=== PATIENT | female | born 1965 | race Caucasian/White ===

== ENCOUNTER → 2022-03-14 | Outpatient (CLI) | payer MEDICARE, OTHER ==
--- NOTE | 2022-03-14 16:55 | MR ---
EXAMINATION TYPE: MR brain wo con DATE OF EXAM: 03/14/2022 COMPARISON: None HISTORY: optic neuritis CONTRAST: Performed utilizing 0 mL intravenous Gadavist gadolinium contrast. TECHNIQUE: Multiplanar, multiecho imaging on a 3.0 Skylar magnet is performed through the brain. Stud y is performed within 24 hours of arrival to the hospital. The craniovertebral junction is normal. The pituitary is normal. Diffusion-weighted imaging is performed. No abnormal hyperintensity is present to suggest an acute i ntracranial infarct or acute ischemic change. Couple of punctate hyperintensities are within the subcortical white matter of the left frontal lobe. This is not out of portion to the patient's age. Finding is nonspecific but could be related to migr lucia headaches, microvascular ischemic change. Multiple sclerosis, vasculitis, Lyme disease would be within the differential. Ventricles and sulci are appropriate for the patient age. The globes appear symmetrical. Extraocular muscles are unremarkable. Intraconal and extraconal fat ap pear normal. No suspicious acute changes of the optic nerves are evident. Optic chiasm appears normal . IMPRESSIONS: 1. No suspicious acute changes. Couple of nonspecific subcortical white matter changes may be within the left frontal lobe.
== END | disposition home or self-care (01) ==
LOC: RADMRIMAIN 12:35
PROVIDERS: ATTEND Physician Assistant
DX: G31.9 Degenerative disease of nervous system, unspecified (principal)
CPT/HCPCS: 70551

== ENCOUNTER → 2024-08-21 | Outpatient (CLI) | payer MEDICARE, OTHER ==
[2024-08-26 04:21] LABS: Cotinine <2.0 ng/mL (<2.0); Nicotine <2.0 ng/mL (<2.0)
== END | disposition home or self-care (01) ==
LOC: LABWHC1 10:48
PROVIDERS: ATTEND Orthopaedic Surgery Orthopaedic Surgery of the Spine
DX: Z01.812 Encounter for preprocedural laboratory examination (principal)
CPT/HCPCS: 36415; G0480; 80323

== ENCOUNTER → 2024-08-27 | Outpatient (CLI) | payer MEDICARE, OTHER ==
[2024-08-27 12:26] LABS: Partial Thromboplastin Time 20.3 sec (22.0-30.0)
[2024-08-27 12:52] LABS: African American GFR (CKD) >90 (>60 ml/min/1.73 sqM); Anion Gap 7 mmol/L; Blood Urea Nitrogen 20 mg/dL (7-17); Calcium 9.9 mg/dL (8.4-10.2); Carbon Dioxide 26 mmol/L (22-30); Chloride 101 mmol/L (98-107); Glucose 165 mg/dL (74-99); Non-African American GFR(CKD) 87 (>60 ml/min/1.73 sqM); Potassium 4.4 mmol/L (3.5-5.1); Sodium 134 mmol/L (137-145)
[2024-08-27 14:08] LABS: Appearance,Urine Cloudy (Clear); Bilirubin,Urine Negative (Negative); Blood,Urine Negative (Negative); Color,Urine Yellow; Glucose,Urine (UA) Negative (Negative); Ketones,Urine Negative (Negative); Leukocyte Esterase,Urine Negative (Negative); Mucus,Urine Few /hpf; Nitrite,Urine Negative (Negative); PH, Urine 5.5 (5.0-8.0); Protein,Urine Trace (Negative); RBC,Urine 2 /hpf (0-5); Specific Gravity,Urine 1.034 (1.001-1.035); Squamous Epithelial Cell,Urine 5 /hpf (0-4); WBC,Urine 2 /hpf (0-5)
[2024-08-27 14:55] LABS: HCT 39.8 % (37.2-46.3); HGB 12.5 g/dL (12.0-15.0); MCH 36.4 pg (27.0-32.0); MCHC 31.4 g/dL (32.0-37.0); Mean Platelet Volume 9.7 FL (9.5-12.2); NRBC Per 100 WBC 0.03 X 10*3/uL (0.00-0.01); Platelet Count 536 X 10*3/uL (140-440); RBC 3.43 X 10*6/uL (4.10-5.20); WBC 15.97 X 10*3/uL (4.50-10.00)
[2024-08-27 15:52] LABS: Basophils # (A) 0.08 X 10*3/uL (0.00-0.10); Basophils % (A) 0.5 %; Eosinophils # (A) 0.02 X 10*3/uL (0.04-0.35); Eosinophils % (A) 0.1 %; Lymphocytes # (A) 1.05 X 10*3/uL (0.90-5.00); Lymphocytes % (A) 6.6 %; Macrocytosis (M) 2+ (None Seen); Monocytes # (A) 0.85 X 10*3/uL (0.20-1.00); Monocytes % (A) 5.3 %; Neutrophils # (A) 13.54 X 10*3/uL (1.80-7.70); Neutrophils % (A) 84.8 %
== END | disposition home or self-care (01) ==
LOC: LABPAT 11:23
PROVIDERS: ATTEND Orthopaedic Surgery Orthopaedic Surgery of the Spine
DX: Z01.818 Encounter for other preprocedural examination (principal); M47.817 Spondylosis without myelopathy or radiculopathy, lumbosacral region; M48.07 Spinal stenosis, lumbosacral region; Z22.322 Carrier or suspected carrier of Methicillin resistant Staphylococcus aureus
CPT/HCPCS: 80048; 81001; 85025; 85610; 85730; 86850; 86900; 86901; 87070; 93005

== ENCOUNTER 2024-09-16 06:01 | Inpatient (IN) | payer MEDICARE, OTHER ==
[2024-09-11 12:11] VITALS: BMI 32.9
[~2024-09-16 06:01] MED LIST: ceFAZolin 1,000 MG in SODIUM CHLORIDE 0.9% IRRIGATIO 1,000 ML IRRIGATION PRN
[2024-09-16] MEDS ORDERED: MIDAZOLAM 2 MG/2 ML VIAL IV PRN (07:00)
[2024-09-16 07:02] LABS: Glucose,Whole Blood 126 mg/dL (70-110)
[2024-09-16] MEDS: ONDANSETRON 4 MG/2 ML VIAL IVP ONE (07:13)
[2024-09-16] MEDS: SCOPOLAMINE 1 MG/72 HR PATCH TRANSDERM ONE (07:14)
[2024-09-16] MEDS: LACTATED RINGERS 1,000 ML IV SCH (07:14)
[2024-09-16 07:16] LABS: Hypochromasia Slight
[2024-09-16] MEDS: HYDROCORTISONE SUCCINATE 100 MG/2 ML VIAL IV STA (07:20)
[2024-09-16] MEDS: IV FLUID CONTINUATION 1,000 ML IV ONE (07:21)
[2024-09-16 07:22] LABS: HCT 37.7 % (34.0-46.0); HGB 11.9 gm/dL (11.4-16.0); MCH 35.5 pg (25.0-35.0); MCHC 31.5 g/dL (31.0-37.0); MCV 112.8 fL (80.0-100.0); Macrocytosis Marked; Mean Platelet Volume 7.6; Platelet Count 395 k/uL (150-450); RBC 3.34 m/uL (3.80-5.40); RDW 15.5 % (11.5-15.5); WBC 14.4 k/uL (3.8-10.6)
[2024-09-16] MEDS ORDERED: SUCCINYLCHOLINE CHLORIDE 200 MG/10 ML VIAL IV ONE (07:25)
[2024-09-16] MEDS ORDERED: fentaNYL (PF) 50 MCG/ML 2 ML AMP ONE (07:25)
[2024-09-16] MEDS ORDERED: PROPOFOL 10 MG/ML 20 ML VIAL IV ONE (07:25)
[2024-09-16] MEDS ORDERED: KETAMINE HCL IN 0.9 % NACL 50 MG/5 ML SYRINGE ONE (07:25)
[2024-09-16] MEDS ORDERED: LIDOCAINE 1% INJ 10MG/ML (20 ML MDV) ONE (07:25)
[2024-09-16] MEDS ORDERED: ROCURONIUM 10 MG/ML (5 ML VIAL) IV ONE (07:25)
[2024-09-16] MEDS ORDERED: MIDAZOLAM 2 MG/2 ML VIAL ONE (07:25)
[2024-09-16] MEDS ORDERED: ACETAMINOPHEN IV (For NPO) 1,000 MG/100 ML VIAL ONE (07:25)
[2024-09-16] MEDS ORDERED: GLYCOPYRROLATE 0.2 MG/ML 2 ML VIAL ONE (07:25)
[2024-09-16] MEDS ORDERED: NEOSTIGMINE 1 MG/ML 10 ML VIAL ONE (07:25)
[2024-09-16] MEDS: THROMBIN (BOVINE) 5,000 UNIT VIAL TOPICAL ONE (07:30)
[2024-09-16] MEDS: LIDOCAINE 1%-EPI 1:100,000 20 ML VIAL SQ ONE (08:05)
[2024-09-16] MEDS: ceFAZolin 1,000 MG in SODIUM CHLORIDE 0.9% IRRIGATIO 1,000 ML IRRIGATION PRN (08:30)
[2024-09-16] MEDS ORDERED: ONDANSETRON 4 MG/2 ML VIAL IVP PRN (10:44)
[2024-09-16] MEDS ORDERED: BENZOCAINE/MENTHOL LOZENG 1 EACH LOZENGE MUCOUS MEM PRN (10:44)
[2024-09-16] MEDS ORDERED: MAGNESIUM HYDROXIDE 2,400 MG/30 ML CUP PO PRN (10:44)
[2024-09-16] MEDS ORDERED: HYDROcodone/APAP 10-325MG 1 EACH TAB PO PRN (10:46)
[2024-09-16] MEDS ORDERED: CYCLOBENZAPRINE 5 MG TAB PO PRN (10:46)
--- NOTE | 2024-09-16 10:58 | FL ---
EXAMINATION TYPE: FL guidance operating room, XR lumbar spine 2 or 3V DATE OF EXAM: 09/16/2024 10:36 AM COMPARISON: Pre Operative Images if available both CT/MRI or plain film CLINICAL INDICATION: Female, 58 years old with history of L5-S1 Fusion; TECHNIQUE: FL guidance operating room, XR lumbar spine 2 or 3V, multiple fluoroscopic images provided for procedure. DAP: 17.526 mGym2 Gycm2 uGym2 cGycm2 or equivalent. FINDINGS: Fluoroscopic images during internal fixation/arthroplasty demonstrate hardware in appropriate positio n. Hardware appears intact. No immediate complication identified. IMPRESSION: 1. No evidence for intraoperative complication. 2. Please see the operative/procedural note for further details. [facility], , 09/16/2024 10:56 AM
--- NOTE | 2024-09-16 11:06 | P.OP ---
Date of Procedure: 09/16/24 Preoperative Diagnosis: Dynamic spondylolisthesis L5-S1, spinal stenosis L5-S1, low back pain, lower extremity radiculopathy Postoperative Diagnosis: Dynamic spondylolisthesis L5-S1, spinal stenosis L5-S1, low back pain, lower extremity radiculopathy Procedure(s) Performed: Minimally invasive decompression and fusion L5-S1, placement of interbody autogenous bone graft within the cage at L5-S1 for transforaminal interbody fusion and 360 degree fusion at L5-S1, wide decompression laminectomy L5-S1, discectomy for decompression L5-S1, use of intraoperative C-arm guidance x 2 for placement of hardware and fixation, harvesting of bone marrow aspirate from L5 pedicle on the right for use to supplement bone graft, harvesting local antis bone graft, Anesthesia: GETA Pathology: none sent Condition: stable Disposition: PACU Description of Procedure: DESCRIPTION OF PROCEDURE(S): BRIEF OPERATIVE NOTE Preoperative Diagnosis: Dynamic spondylolisthesis L5-S1, spinal stenosis L5-S1, herniated nucleus pulposus with extruded fragment L5-S1, lower extremity radiculopathy, lower extremity weakness, neurogenic claudication, low back pain, degenerative disc disease Postoperative Diagnosis: Same Procedure: Laminectomy and decompression L5-S1 Biplanar fluoroscopy navigation aided Minimally invasive Posterior lateral decompression and facet fusion L5-S1 Minimally invasive Transforaminal lumbar interbody fusion for a 360 fusion L5-S1 Discectomy for decompression L5-S1 Placement of interbody graft L5-S1 Use of fluoroscopy navigation for fusion Local autogenous bone grafting Aspiration of bone marrow from the vertebral body pedicle L5 on the right Use of bone graft extenders Surgeon: Dr. Mcguire Hand Shaper: Dante MOSS who is present throughout the entire the case persistence during positioning, dissection, exposure, visualization, and all crucial elements of the case as well as closure. Anesthesia: General anesthesia per Estimated blood loss: Approximately 200 mL Complications: None apparent Components implanted: K2M minimally invasive [place] pedicle screw system withscrews measuring 6.5 mm in diameter to rods one 9 mm Smyer interbody cage with 10 mL of osteo amp bio4 bone graft substitute and 30 mL of the BX bone fibers to supplement the local autogenous bone graft and bone marrow aspirate Disposition: To recovery room in good stable condition. OPERATIVE INDICATIONS The patient has had severe issues at their lower extremity in her lower back over the past several months with significant worsening. Over the past few months the patient had pain at their back and their lower extremities. The patient is having severe radicular symptoms at their right lower extremity with weakness. The patient is having significant pain in their back. They are unable to obtain any comfort. We did aggressive conservative treatment with medications therapy and interventional pain management however thery were not having any relief. The patient also showed evidence of a dynamic grade 2 listhesis with some dynamic instability at L5-S1. He had a large disc nation at the far lateral space at L5-S1 on the right which correlated well with her low back and lower extremity symptoms. The patient has been through conservative treatment. We discussed various treatment options including surgery, and the patient wishes to proceed with surgery We discussed the risk, patient's alternatives and benefits of surgery including but not limited to, risk of bleeding risk of infection, risk of need for further surgery, risk of decreased, loss of motion, muscle function, malunion nonunion, hardware failure, nerve damage, paralysis, heart attack, blindness and . They understood issues with the current pandemic and the possibility of exposure. OPERATIVE SUMMARY After discussing all the risks, patient alternatives and benefits at length, the patient elected to proceed with surgical intervention, signed informed consent, and presented for their procedure. The patient was seen and examined in the preoperative holding area and the surgical site was marked. The patient was given antibiotics and brought to the operating room. The patient was sedated and intubated by anesthesia in standard fashion. The patient was positioned on to the operating room table in a prone position on the appropriate frame which was well-padded and well molded. We were careful to pad any bony prominences and pressure points. We were careful to maintain the patient's cervical spine and good neutral alignment and position throughout. The patient was prepped and draped in a normal standard fashion. An appropriate timeout and keystone protocol performed. We were able to proceed with the surgery. The local wound area was infiltrated with local anesthetic. Over the right iliac crest I was able to make small stab incisions and establish a guidepin screw fixation to the iliac crest 2. I was able place the computer referencing device over the guidepins to establish an appropriate reference point for the Ziem CT navigation, however there is some malfunction with the same navigation and we opted to use biplanar fluoroscopy for guidance and navigation throughout the case appropriately. I was able utilize C-arm guidance and a biplanar manner to establish appropriate position over the pedicles bilaterally at the appropriate levels at L5-S1. With the appropriate levels confirmed was able to make small incisions over the appropriate pedicle sites bilaterally. Utilizing the biplanar fluoroscopy I was able to establish bony landmarks at the right iliac crest for a bony reference point for the navigation device. I was able to establish a Jamshidi needle over the lateral aspect of the pedicle and advanced the trocar into the pedicle being careful not to breech superiorly inferiorly medially or laterally using computer navigation device. Position was confirmed regularly with AP and lateral images on C-arm and with the computer navigation device at the appropriate levels bilaterally. I was able to establish the trocar into the pedicle appropriately into the posterior aspect of the vertebral body bilaterally at the appropriate levels at L5-S1 bilaterally. This was done at each of the pedicle positions and each of the vertebrae. At the superior vertebrae of L5 on the right I was able to take approximately 15 mL of bone aspiration for use later in the case to supplement the allograft and autograft bone. I was able place the guidewire into the trocar and into the vertebral body appropriately under C-arm guidance. Dissection was taken down over the wire to the appropriate starting position for the screw placed. The appropriate length screw was chosen, threaded over the guidewire and screwed appropriately into the pedicle and vertebral body under C- arm guidance in excellent alignment and position with good bony purchase. This is done at each of the screw sites at the appropriate levels.. With the screws intact I extended the incision to connect the screw hole sites on the most symptomatic side on the right. I dissected down to establish access over the pars and lamina to the base of the spinous process. I was able to expose the facet joint. The capsule the facet was taken down and showed some facet arthrosis at the joint. I was able to use a combination of curettes and Kerrison rongeurs and a high-speed drill to take down the facet joint and do a facetectomy. I was able get excellent foraminal decompression and central decompression with undermining across midline to perform a laminectomy centrally and contralaterally. As able get good central decompression. The ligamentum flavum was taken down to further decompress centrally and at bilateral neural foramen. I was able to expose the disc space and visualize the traversing nerve root. Note was made of some large disc herniation at the far lateral space at L5-S1 on the right and disc herniation that was abutting the traversing nerve root at the level causing further compression of the nerve root. I was able to establish a annulotomy at the appropriate level protecting soft tissue and neural structures. Note was made of some disc desiccation at the disc. I performed a complete discectomy with accommodation of curettes and rasps and scrapers. I was able get good endplate preparation at the disc space. I sized for the appropriate size interbody spacer protecting the soft tissue and neural structures. The wound was copiously irrigated and suctioned dry. There is no evidence of any dural tear or leak. I was able to pack the disc space with local autogenous bone graft as well as a small amount of bone graft which was also placed into the interbody cage itself. Protecting the soft tissue structures and neural structures I was able place the interbody cage in good alignment and good position with good fit and fill at the interbody space. Position was confirmed with C-arm guidance. Good hemostasis maintained. There is no evidence of any dural tear or leak. The wound was irrigated and suctioned dry. With the hardware intact, intraoperative C-arm imaging was again taken which showed good alignment and position of the hardware at the appropriate levels. We were then able to measure, contour and place the rods and appropriate hardware bilaterally. I was able to place capcrews, tighten them down, and torque them with the torque screwdriver appropriately. With this intact I was able to place the local autogenous bone graft with additional bone graft enhancer as necessary into the posterior lateral gutters over the decorticated transverse processes and facet joints on the contralateral side. The remainder of the bone graft was placed over the facet joint on the contralateral side after taking down the facet joint capsule. With the bone graft intact, a stable construct, and good decompression at the appropriate levels at L5-S1, we were able to proceed with closure. Good hemostasis was maintained. There is no evidence of dural tear or leak. The fascia was closed for a watertight closure. he subcuticular tissue was closed with absorbable suture. The wound was cleaned and dried and dressed with the appropriate dressing. The drapes were broken down. The patient was gently rolled back onto their hospital bed being careful to maintain their cervical spine and good neutral alignment and position. They were woken up by anesthesia, extubated, and brought to the recovery room in good stable condition. The patient will be admitted to the hospital for appropriate postoperative care, medical management and monitoring. We will continue to follow them closely about the postoperative course.
[2024-09-16] MEDS: HYDROmorphone 0.5 MG/0.5 ML SYRINGE IVP PRN (11:16)
[2024-09-16] MEDS: DEXAMETHASONE SOD PHOSPHATE 4 MG/ML 1 ML VIAL IV ONE (12:27)
[2024-09-16] MEDS: SODIUM CHLORIDE 0.9% 1,000 ML IV SCH (13:10)
[2024-09-16] MEDS: HYDROmorphone 1 MG/ML 1 ML SYRINGE IVP PRN (13:17)
[2024-09-16] MEDS: GABAPENTIN 400 MG CAP PO SCH (16:37)
[2024-09-16] MEDS: CYCLOBENZAPRINE 10 MG TAB PO PRN (16:43)
[2024-09-16] MEDS: SPIRONOLACTONE 25 MG TAB PO SCH (19:52)
[2024-09-16] MEDS: HYDROcodone/APAP 10-325MG 1 EACH TAB PO PRN (19:53)
[2024-09-16] MEDS: MIDODRINE 5 MG TAB PO SCH (19:53)
[2024-09-16] MEDS: METOPROLOL SUCCINATE (ER) 25 MG TAB.ER.24H PO SCH (19:54)
[2024-09-16] MEDS ORDERED: IPRATROPIUM-ALBUTEROL 3 ML NEB INHALATION PRN (22:33)
--- NOTE | 2024-09-16 22:34 | P.CONS ---
History of Present Illness - Reason for Consult Consult date: 09/16/24 Medical management Requesting physician: Kameron Mcguire - Chief Complaint Lumbar surgery - History of Present Illness Very pleasant 58-year-old patient follows Dr. Blu Yeboah. Chronic medical conditions include atrial fibrillation, COPD, GERD, rheumatoid arthritis, obstructive sleep apnea does not use a CPAP machine, hypothyroid, varicose veins, diverticulosis. Patient has lower back pain for good 10 months. Progressively getting worse. Had sciatica symptoms pain going down the right leg. Finding it difficult to walk. Patient today is undergone surgical intervention in the lower lumbar spine. Postprocedure some local pain present. No nausea vomiting. Review of systems: GEN.: None EYES: None HEENT: None NECK: None RESPIRATORY: None CARDIOVASCULAR: None GASTROINTESTINAL: None GENITOURINARY: None MUSCULOSKELETAL: As above LYMPHATICS: None HEMATOLOGICAL: None PSYCHIATRY: None NEUROLOGICAL: [Was having trouble walking prior to surgery Social history: Patient smoke about 50 years stopped smoking about a month ago. Lives with her [facility]. Denies alcohol Physical examination: VITAL SIGNS: 98.7, 101, 16, 111 x 72, 93% room air GENERAL: BMI 33.4, reclining bed awake not in distress. EYES: Pupils equal. Conjunctiva karyn l. HEENT: External appearance of nose and ears normal, oral cavity grossly normal. NECK: JVD not raised; masses not palpable. HEART: First and second heart sounds are normal; no edema. LUNGS: Respiratory rate normal; diminished breath sounds. ABDOMEN: Soft, nontender, liver spleen not palpable, no masses palpable. PSYCH: Alert and oriented x3; mood and affect karyn l. MUSCULOSKELETAL:No Clubbing/cyanosis;muscles-grossly intact. Dressing over operative site NEUROLOGICAL: Cranial nerves grossly intact; no facial asymmetry, power and sensation grossly intact. LYMPHATICS: No lymph nodes palpable in the axilla and neck INVESTIGATIONS, reviewed in the clinical context: September 16, 2024: White count 14.4 hemoglobin 11.9 platelets 395 August 27, 2024: White count 15.9 hemoglobin 12.5 sodium 134 potassium 4.4 creatinine 0.75 Assessment plan: -Dynamic spondylolisthesis L5-S1, spinal stenosis L5-S1, low back pain, lower extremity radiculopathy Laminectomy, decompression discectomy interbody graft etc. by Dr. Mcguire on September 16, 2024 Follow postop orders per Dr. Mcguire -Chronic urinary stress incontinence Myrbetriq -Hypothyroid Synthroid 75 mcg a day -Muscle spasms Flexeril -COPD in a prior smoker Bronchodilators as needed -Obesity BMI 33.4 Weight loss measures -Chronic rheumatoid arthritis -Obstructive sleep apnea, patient does not use her CPAP -Chronic diverticulosis with prior bowel resection. Stable -GERD PPI -Full code Patient getting IV cefazolin for antibiotic prophylaxis Home medications be resumed. Care was discussed with the patient. Thank you Dr. Mcguire Past Medical History Past Medical History: Atrial Fibrillation, COPD, GERD/Reflux, Rheumatoid Arthritis (RA), Sleep Apnea/CPAP/BIPAP, Thyroid Disorder Additional Past Medical History / Comment(s): sores radha arms,"takes cardiac meds due to when standing up would feel dizzy and fall",chronic back pain,varicose veins, has O2 at home but does not use,does not use cpap,herpes,daily steroid,diverticulosis/diverticulitis History of Any Multi-Drug Resistant Organisms: None Reported Past Surgical History: Bowel Resection, Cardiac Ablation, Section, Orthopedic Surgery Additional Past Surgical History / Comment(s): radha carpal tunnel, bowel resection due to diverticulitis, COLONOSCOPY Past Anesthesia/Blood Transfusion Reactions: No Reported Reaction Additional Past Anesthesia/Blood Transfusion Reaction / Comm: no hx blood transfusion Past Psychological History: No Psychological Hx Reported Smoking Status: Former smoker Past Alcohol Use History: None Reported Additional Past Alcohol Use History / Comment(s): quit smoking 07-31-24, smokes approx 50 yrs-on and off Past Drug Use History: None Reported - Past Family History Mother Family Medical History: No Reported History Medications and Allergies Home Medications Medication Instructions Recorded Confirmed Type Apixaban [Eliquis] 5 mg PO BID 08/28/24 09/16/24 History Atorvastatin Calcium [Lipitor] 40 mg PO DAILY 08/28/24 09/11/24 History Cholecalciferol (Vitamin D3) 125 mcg PO DAILY 08/28/24 09/11/24 History [Vitamin D3 (125 MCG = 5,000 IU)] Cyclobenzaprine HCl 5 mg PO TID PRN 08/28/24 09/11/24 History Fludrocortisone Acetate 0.2 mg PO QAM 08/28/24 09/11/24 History Gabapentin 800 mg PO TID 08/28/24 09/11/24 History HYDROcodone/APAP 10-325MG [[place] 1 tab PO BID PRN 08/28/24 09/11/24 History 10-325] Leflunomide [Arava] 20 mg PO DAILY 08/28/24 09/11/24 History Levothyroxine Sodium [Synthroid] 75 mcg PO QAM 08/28/24 09/11/24 History Metoprolol Succinate (ER) [Toprol 25 mg PO BID 08/28/24 09/16/24 History Xl] Midodrine HCl [ProAmantine] 2.5 mg PO BID 08/28/24 09/11/24 History Mirabegron [Myrbetriq] 50 mg PO DAILY 08/28/24 09/11/24 History Omeprazole 20 mg PO QAM 08/28/24 09/11/24 History Spironolactone [Aldactone] 50 mg PO BID 08/28/24 09/11/24 History Upadacitinib [Rinvoq] 15 mg PO DAILY 08/28/24 09/11/24 History valACYclovir HCL [Valtrex] 500 mg PO DAILY 08/28/24 09/11/24 History Allergies Allergy/AdvReac Type Severity Reaction Status Date / Time No Known Allergies Allergy Verified 09/16/24 06:36 Physical Exam Vitals: Vital Signs Temp Pulse Resp BP Pulse Ox 09/16/24 19:30 98.7 F 111 H 16 117/72 93 L 09/16/24 14:40 102 H 116/70 92 L 09/16/24 14:25 105 H 114/73 93 L 09/16/24 14:10 111 H 109/74 94 L 09/16/24 13:55 108 H 122/72 93 L 09/16/24 13:25 131 H 134/87 93 L 09/16/24 13:09 104 H 150/88 91 L 09/16/24 12:55 93 144/92 94 L 09/16/24 12:40 111 H 145/86 93 L 09/16/24 12:15 89 16 140/78 95 09/16/24 12:00 87 16 137/62 95 09/16/24 11:38 92 16 151/81 95 09/16/24 11:23 106 H 16 162/89 92 L 09/16/24 11:08 87 16 168/86 97 09/16/24 10:53 96.8 F L 108 H 16 177/89 98 09/16/24 06:43 963.8 F H 119 H 16 143/90 95 Intake and Output 09/16/24 09/16/24 09/16/24 06:59 14:59 22:59 Intake Total 851 Output Total 450 200 Balance 401 -200 Intake: IV 851 Output: Urine 250 200 Estimated Blood Loss 200 Other: # Voids 1 Weight 85.6 kg 85.6 kg Results CBC & Chem 7: 09/16/24 07:05 Labs: Abnormal Lab Results - Last 24 Hours (Table) 09/16/24 09/16/24 Range/Units 07:01 07:05 WBC 14.4 H (3.8-10.6) k/uL RBC 3.34 L (3.80-5.40) m/uL MCV 112.8 H (80.0-100.0) fL MCH 35.5 H (25.0-35.0) pg Macrocytosis Marked A POC Glucose (mg/dL) 126 H (70-110) mg/dL
[2024-09-17 05:43] LABS: ALT 21 U/L (4-34); AST 38 U/L (14-36); African American GFR (CKD) 74 (>60 ml/min/1.73 sqM); Albumin/Globulin Ratio 1.3; Alkaline Phosphatase 114 U/L (38-126); Anion Gap 10 mmol/L; Blood Urea Nitrogen 16 mg/dL (7-17); Calcium 8.6 mg/dL (8.4-10.2); Carbon Dioxide 19 mmol/L (22-30); Chloride 101 mmol/L (98-107); Globulin 2.4 g/dL; Glucose 90 mg/dL (74-99); Non-African American GFR(CKD) 64 (>60 ml/min/1.73 sqM); Sodium 130 mmol/L (137-145); Total Bilirubin 0.4 mg/dL (0.2-1.3); Total Protein 5.4 g/dL (6.3-8.2)
[2024-09-17] MEDS: LEVOTHYROXINE 75 MCG TAB PO SCH (07:01)
[2024-09-17] MEDS: PANTOPRAZOLE 40 MG TABLET PO SCH (07:01)
[2024-09-17] MEDS: NON FORMULARY DRUG (Mirabegron [Myrbetriq] 50 MG Tab.Er.24h) PO SCH (08:25)
[2024-09-17] MEDS: NON FORMULARY DRUG (Upadacitinib [Rinvoq] 15 MG Tab.Er.24h) PO SCH (08:25)
[2024-09-17] MEDS: valACYclovir HCL 500 MG TAB PO SCH (08:29)
[2024-09-17] MEDS: SENNOSIDES-DOCUSATE SODIUM 1 EACH TAB PO SCH (08:30)
[2024-09-17] MEDS: LEFLUNOMIDE 20 MG TAB PO SCH (08:30)
[2024-09-17] MEDS: ATORVASTATIN 40 MG TAB PO SCH (08:30)
[2024-09-17] MEDS: CHOLECALCIFEROL 125 MCG (5000 IU) TABLET PO SCH (08:30)
[2024-09-17] MEDS: FLUDROCORTISONE 0.1 MG TAB PO SCH (08:30)
[2024-09-17 08:46] LABS: Basophils # (A) 0.04 X 10*3/uL (0.00-0.10); Basophils % (A) 0.3 %; Eosinophils # (A) 0.19 X 10*3/uL (0.04-0.35); Eosinophils % (A) 1.6 %; HCT 30.8 % (37.2-46.3); HGB 9.7 g/dL (12.0-15.0); Lymphocytes # (A) 1.49 X 10*3/uL (0.90-5.00); Lymphocytes % (A) 12.3 %; MCH 36.6 pg (27.0-32.0); MCHC 31.5 g/dL (32.0-37.0); MCV 116.2 FL (80.0-97.0); Mean Platelet Volume 9.6 FL (9.5-12.2); Monocytes # (A) 1.21 X 10*3/uL (0.20-1.00); NRBC Per 100 WBC 0 X 10*3/uL (0.00-0.01); Neutrophils # (A) 9.09 X 10*3/uL (1.80-7.70); Platelet Count 312 X 10*3/uL (140-440); RBC 2.65 X 10*6/uL (4.10-5.20); RDW 14.9 % (11.5-14.5); WBC 12.12 X 10*3/uL (4.50-10.00)
--- NOTE | 2024-09-17 10:27 | P.PN ---
Progress Note - Text Progress Note Date: 09/17/24 Orthopedic Spine History of present illness: Patient is a pleasant 58-year-old female who is seen and examined at the bedside following posterior lateral decompression and fusion performed yesterday. Patient states they are doing well post operatively. She has some pain at the surgical sites at her lumbar spine but is currently mobilizing well. She has been able to ambulate to the restroom. Her Riley catheter has been discontinued. She is voiding multiple times without difficulty. She does have pain at her lumbar spine with increased activities. She is not currently complaining of any specific lower extremity weakness or radiculopathy. Her right lower extremity has significantly improved postoperatively. She is working with physical therapy this morning. She is able to ambulate steps in the hallway. Her pain is being controlled with IV and oral medications. She does have some difficulty with controlling her pain with oral medications only. She states she has been on hydrocodone chronically over the past decade for pain control. She is being seen and examined by medicine for her other medical diagnoses including chronic urinary stress incontinence, hypothyroid, COPD and a prior smoker, obesity, chronic rheumatoid arthritis, obstructive sleep apnea, and chronic diverticulosis with prior bowel resection. Physical Exam Lumbar Fusion: Status post surgical day number Patient is awake, alert, and oriented 3 Vital signs stable Good chest excursion with deep inspiration and expiration Abdomen soft nontender Dorsiflexion, plantarflexion, and extensor hallucis longus positive sustained bilaterally No signs or symptoms of DVT; no calf pain; pneumatic cuffs not currently intact bilateral lower extremities Optifoam dressings are clean, dry, and intact over the lumbar spine and right iliac crest; no erythema, purulence, or signs of infection Neurovascularly intact bilaterally lower extremities Riley catheter has been discontinued Assessment: Status post L5-S1 minimally invasive posterior lateral decompression and fusion with transforaminal lumbar interbody fusion Low back pain L5-S1 spinal stenosis L5-S1 dynamic spondylolisthesis Right lower extremity radiculopathy Chronic urinary stress incontinence Hypothyroid COPD and a prior smoker Obesity Chronic rheumatoid arthritis Obstructive sleep apnea Chronic diverticulosis with prior bowel resection Plan: 1. Ambulate as tolerated; work with Physical Therapy to increase mobilization 2. Continue pain control with IV and oral medications; will plan to begin weaning the patient off of IV narcotic medication in anticipation for discharge home in the next 1-2 days. We will discontinue [place] 10 mg / 325 mg. We will add hydrocodone 5 mg / 325 mg, 1 tab, every 4 hours, as needed for acute pain. 3. Dressings to remain intact with Optifoam; patient may shower with dressings intact 4. Medical management can continue to manage patient for patient's other medical diagnoses 5. We will continue to follow the patient closely; depending on the patient's progress, we may plan for discharge home as early as tomorrow, 09/18/2024 6. Patient can follow-up with Dante Almazan PA-C or Dr. Juan M Mcguire at [facility] in 2-3 weeks following discharge The patient is making appropriate progress postoperatively. Her lower extremity symptoms have improved significantly with the decompression and I think that the stability will help in terms of her listhesis. Will continue to help her mobilize and control the pain. Hopefully she will continue to make progress and could potentially be discharged home tomorrow or Saturday
[2024-09-17] MEDS: oxyCODONE-APAP 5-325MG 1 EACH TAB PO PRN (11:34)
--- NOTE | 2024-09-17 16:56 | P.PN ---
Progress Note - Text Progress Note Date: 09/17/24 - Chief Complaint Lumbar surgery - History of Present Illness Very pleasant 58-year-old patient follows Dr. Blu Yeboah. Chronic medical conditions include atrial fibrillation, COPD, GERD, rheumatoid arthritis, obstructive sleep apnea does not use a CPAP machine, hypothyroid, varicose veins, diverticulosis. Patient has lower back pain for good 10 months. Progressively getting worse. Had sciatica symptoms pain going down the right leg. Finding it difficult to walk. Patient today is undergone surgical intervention in the lower lumbar spine. Postprocedure some local pain present. No nausea vomiting. September 17: Patient did walk up 150 feet hand-held assist with physical therapy. Eating well. Her heart rate had gone up to the 130s yesterday evening. I did explain the importance of telemetry especially postop history of A-fib. Initially patient agreed. Later asked spoke to the nurse patient again has refused telemetry. Active Medications Albuterol/Ipratropium (Ipratropium-Albuterol 3 Ml Neb) 3 ml INHALATION RT-Q4H PRN PRN Reason: Bronchospasm Apixaban (Apixaban 5 Mg Tab) 5 mg PO BID [facility]; Protocol Atorvastatin Calcium (Atorvastatin 40 Mg Tab) 40 mg PO DAILY [facility] Last Admin: 09/17/24 08:30 Dose: 40 mg Benzocaine/Menthol (Benzocaine/Menthol Lozeng 1 Each Lozenge) 1 each MUCOUS MEM Q4HR PRN PRN Reason: Sore Throat Cholecalciferol (Cholecalciferol 125 Mcg (5000 Iu) Tablet) 125 mcg PO DAILY [facility] Last Admin: 09/17/24 08:30 Dose: 125 mcg Cyclobenzaprine HCl (Cyclobenzaprine 10 Mg Tab) 10 mg PO TID PRN PRN Reason: Muscle Spasm Last Admin: 09/16/24 16:43 Dose: 10 mg Fludrocortisone Acetate (Fludrocortisone 0.1 Mg Tab) 0.2 mg PO QAM [facility] Last Admin: 09/17/24 08:30 Dose: 0.2 mg Gabapentin (Gabapentin 400 Mg Cap) 800 mg PO TID [facility] Last Admin: 09/17/24 16:13 Dose: 800 mg Hydromorphone HCl (Hydromorphone 1 Mg/Ml 1 Ml Syringe) 1 mg IVP Q4HR PRN PRN Reason: Pain Last Admin: 09/17/24 08:28 Dose: 1 mg Lactated Ringer's (Lactated Ringers) 1,000 mls @ 20 mls/hr IV .Q24H [facility] Last Admin: 09/17/24 07:03 Dose: Not Given Sodium Chloride (Saline 0.9%) 1,000 mls @ 75 mls/hr IV .[id number] [facility] Last Admin: 09/17/24 11:57 Dose: Not Given Leflunomide (Leflunomide 20 Mg Tab) 20 mg PO DAILY [facility] Last Admin: 09/17/24 08:30 Dose: 20 mg Levothyroxine Sodium (Levothyroxine 75 Mcg Tab) 75 mcg PO QAM@0630 [facility] Last Admin: 09/17/24 07:01 Dose: 75 mcg Magnesium Hydroxide (Magnesium Hydroxide 2,400 Mg/30 Ml Cup) 2,400 mg PO DAILY PRN PRN Reason: Constipation Metoprolol Succinate (Metoprolol Succinate (Er) 25 Mg Tab.Er.24h) 25 mg PO BID [facility] Last Admin: 09/17/24 08:30 Dose: 25 mg Midodrine (Midodrine 5 Mg Tab) 2.5 mg PO BID [facility] Last Admin: 09/17/24 08:30 Dose: Not Given Non-Formulary Medication (Upadacitinib [Rinvoq]) 15 mg PO DAILY [facility] Last Admin: 09/17/24 08:25 Dose: Not Given Non-Formulary Medication (Mirabegron [Myrbetriq]) 50 mg PO DAILY [facility] Last Admin: 09/17/24 08:25 Dose: Not Given Ondansetron HCl (Ondansetron 4 Mg/2 Ml Vial) 4 mg IVP Q8HR PRN PRN Reason: Nausea And Vomiting Oxycodone/Acetaminophen (Oxycodone-Apap 5-325mg 1 Each Tab) 1 each PO Q4HR PRN PRN Reason: Pain Last Admin: 09/17/24 16:13 Dose: 1 each Pantoprazole Sodium (Pantoprazole 40 Mg Tablet) 40 mg PO AC-BRKFST [facility] Last Admin: 09/17/24 07:01 Dose: 40 mg Senna/Docusate Sodium (Sennosides-Docusate Sodium 1 Each Tab) 1 each PO DAILY [facility] Last Admin: 09/17/24 08:30 Dose: 1 each Spironolactone (Spironolactone 25 Mg Tab) 50 mg PO BID [facility] Last Admin: 09/17/24 08:29 Dose: 50 mg Valacyclovir HCl (Valacyclovir Hcl 500 Mg Tab) 500 mg PO DAILY [facility]; Protocol Last Admin: 09/17/24 08:29 Dose: 500 mg Social history: Patient smoke about 50 years stopped smoking about a month ago. Lives with her [facility], [place]. Denies alcohol Physical examination: VITAL SIGNS: 100.1, 114, 18, 111 x 76, 91% room air GENERAL: BMI 33.4, comfortable EYES: Pupils equal. Conjunctiva karyn l. HEENT: External appearance of nose and ears normal, oral cavity grossly normal. NECK: JVD not raised; masses not palpable. HEART: Heart sounds a irregular r; no edema. LUNGS: Respiratory rate normal; diminished breath sounds. ABDOMEN: Soft, nontender, liver spleen not palpable, no masses palpable. PSYCH: Alert and oriented x3; mood and affect karyn l. MUSCULOSKELETAL:No Clubbing/cyanosis;muscles-grossly intact. Dressing over ope rative site INVESTIGATIONS, reviewed in the clinical context: September 17: White count 12.1 hemoglobin 9.7 platelets 312 sodium 130 potassium 4 creatinine 0.97 September 16, 2024: White count 14.4 hemoglobin 11.9 platelets 395 August 27, 2024: White count 15.9 hemoglobin 12.5 sodium 134 potassium 4.4 creatinine 0.75 Assessment plan: -Dynamic spondylolisthesis L5-S1, spinal stenosis L5-S1, low back pain, lower extremity radiculopathy Laminectomy, decompression discectomy interbody graft etc. by Dr. Mcguire on September 16, 2024 Follow postop orders per Dr. Mcguire -Chronic urinary stress incontinence Myrbetriq -Persistent atrial fibrillation. Intermittent heart rate controlled. After repeated explaining patient is refusing telemetry. Eliquis. Toprol-XL -Acute postprocedure blood loss anemia expected from surgery Give IV Ferrlecit -Hypothyroid Synthroid 75 mcg a day -Muscle spasms Flexeril -COPD in a prior smoker Bronchodilators as needed -Obesity BMI 33.4 Weight loss measures -Chronic rheumatoid arthritis -Obstructive sleep apnea, patient does not use her CPAP -Chronic diverticulosis with prior bowel resection. Stable -GERD PPI -Full code Patient refusing telemetry. IV Ferrlecit. Thank you Dr. Mcguire Past Medical History Past Medical History: Atrial Fibrillation, COPD, GERD/Reflux, Rheumatoid Arthritis (RA), Sleep Apnea/CPAP/BIPAP, Thyroid Disorder Additional Past Medical History / Comment(s): sores radha arms,"takes cardiac meds due to when standing up would feel dizzy and fall",chronic back pain,varicose veins, has O2 at home but does not use,does not use cpap,herpes,daily steroid,diverticulosis/diverticulitis History of Any Multi-Drug Resistant Organisms: None Reported Past Surgical History: Bowel Resection, Cardiac Ablation, Section, Orthopedic Surgery Additional Past Surgical History / Comment(s): radha carpal tunnel, bowel resection due to diverticulitis, COLONOSCOPY Past Anesthesia/Blood Transfusion Reactions: No Reported Reaction Additional Past Anesthesia/Blood Transfusion Reaction / Comm: no hx blood transfusion Past Psychological History: No Psychological Hx Reported Smoking Status: Former smoker Past Alcohol Use History: None Reported Additional Past Alcohol Use History / Comment(s): quit smoking 2-, smokes approx 50 yrs-on and off Past Drug Use History: None Reported
[2024-09-17] MEDS: SODIUM FERRIC GLUCONAT-SUCROSE 125 MG in SODIUM CHLORIDE 0.9% 100 ML IVPB SCH (18:30)
[2024-09-18 08:06] VITALS: BP 107/67; PULSE 112; RESP 17; TEMP 99.4
[2024-09-18] MEDS: FERROUS SULFATE 325 MG TAB PO SCH (08:46)
[2024-09-18] MEDS: APIXABAN 5 MG TAB PO SCH (08:47)
--- NOTE | 2024-09-18 09:29 | P.DS ---
Providers Date of admission: 09/16/24 06:01 Expected date of discharge: 09/18/24 Attending physician: Kameron Mcguire Consults: 09/16/24 10:44 Consult Physician Routine Consulting Provider: Norman Vital Consult Reason/Comments: Medical management Do you want consulting provider notified?: Yes Primary care physician: Hakan Yeboah - Discharge Diagnosis(es) (1) Status post lumbar spinal fusion Current Visit: Yes Status: Acute (2) Low back pain Current Visit: Yes Status: Acute (3) Lumbar back pain with radiculopathy affecting right lower extremity Current Visit: Yes Status: Acute (4) Spondylolisthesis, lumbosacral region Current Visit: Yes Status: Acute (5) Lumbosacral spinal stenosis Current Visit: Yes Status: Acute (6) COPD (chronic obstructive pulmonary disease) Current Visit: Yes Status: Acute (7) Obesity Current Visit: Yes Status: Acute (8) Obstructive sleep apnea Current Visit: Yes Status: Acute (9) Rheumatoid arthritis Current Visit: Yes Status: Acute (10) Diverticulosis Current Visit: Yes Status: Acute Hospital Course: This is a pleasant 58-year-old female who presented with L5-S1 dynamic spondylolisthesis and spinal stenosis with right lower extremity radiculopathy who failed outpatient conservative therapy. She was admitted for an L5-S1 minimally invasive posterior lateral decompression and fusion with transforaminal lumbar interbody fusion. The patient tolerated the procedure well and did well postoperatively. Her pain is currently being well-controlled with oral medications. She has some pain at the surgical sites which is controlled. She is no longer experiencing any lower extremity radiculopathy. She denies any weakness. She is very happy with her progress. She feels she is ready for discharge today. Condition on day of discharge stable. Patient will be discharged home. Patient was cleared preoperatively for surgery by Dr. Yeboah. Patient currently denies any nausea, vomiting, fever, or chills. Patient is eating and voiding freely without difficulty. Patient may shower Optifoam dressing intact. Patient may remove Optifoam dressing in 3 days and shower without a dressing at that time. Patient should refrain from driving until at least after their first follow-up appointment in the office. Patient should avoid excessive bending, lifting, and twisting; no lifting greater than 10 pounds. MAPS has been reviewed today, 09/18/2024, with an Overall Overdose Risk Score of 380. An "Opiod Start Talking" Form has been signed and placed in the patient's chart. A prescription has been written for Percocet 5 mg / 325 mg, 1 tab, every 4 hours, as needed for acute pain, dispense #42. Prescription also written for cyclobenzaprine 10 mg, 1 tab, 3 times daily, as needed for muscle spasm, dispense #60. Prescriptions are sent to the [facility] pharmacy located within [facility] per request of the patient. Patient's other medical diagnoses include hypothyroid, COPD and a prior smoker, obesity, chronic rheumatoid arthritis, obstructive sleep apnea, and chronic diverticulosis with prior bowel resection. Physical Exam on day of discharge: Patient is awake, alert, and oriented 3 Vital signs stable Good chest excursion with deep inspiration and expiration Abdomen soft nontender No signs or symptoms of DVT; no calf pain Extensor hallucis longus, plantarflexion, and dorsiflexion positive sustained bilateral lower extremities Incisions are clean, dry, and intact; no erythema, purulence, or signs of infection Optifoam dressing intact Procedures: L5-S1 minimally invasive posterior lateral decompression and fusion with tra nsforaminal lumbar interbody fusion Patient Condition at Discharge: Stable Plan - Discharge Summary Discharge Rx Participant: No New Discharge Prescriptions: New Cyclobenzaprine [Flexeril] 10 mg PO TID PRN #60 tab PRN Reason: Muscle Spasm oxyCODONE-APAP 5-325MG [Percocet 5-325 mg] 1 tab PO Q4HR PRN #42 tab PRN Reason: Pain No Action Leflunomide [Arava] 20 mg PO DAILY Apixaban [Eliquis] 5 mg PO BID Fludrocortisone Acetate 0.2 mg PO QAM Midodrine HCl [ProAmantine] 2.5 mg PO BID Atorvastatin Calcium [Lipitor] 40 mg PO DAILY valACYclovir HCL [Valtrex] 500 mg PO DAILY Cholecalciferol (Vitamin D3) [Vitamin D3 (125 MCG = 5,000 IU)] 125 mcg PO DA VENANCIO Cyclobenzaprine HCl 5 mg PO TID PRN PRN Reason: Pain Mirabegron [Myrbetriq] 50 mg PO DAILY Metoprolol Succinate (ER) [Toprol Xl] 25 mg PO BID HYDROcodone/APAP 10-325MG [[place] 10-325] 1 tab PO BID PRN PRN Reason: Pain Upadacitinib [Rinvoq] 15 mg PO DAILY Gabapentin 800 mg PO TID Omeprazole 20 mg PO QAM Spironolactone [Aldactone] 50 mg PO BID Levothyroxine Sodium [Synthroid] 75 mcg PO QAM Discharge Medication List Apixaban [Eliquis] 5 mg PO BID 08/28/24 [History] Atorvastatin Calcium [Lipitor] 40 mg PO DAILY 08/28/24 [History] Cholecalciferol (Vitamin D3) [Vitamin D3 (125 MCG = 5,000 IU)] 125 mcg PO DAILY 08/28/24 [History] Cyclobenzaprine HCl 5 mg PO TID PRN 08/28/24 [History] Fludrocortisone Acetate 0.2 mg PO QAM 08/28/24 [History] Gabapentin 800 mg PO TID 08/28/24 [History] HYDROcodone/APAP 10-325MG [[place] 10-325] 1 tab PO BID PRN 08/28/24 [History] Leflunomide [Arava] 20 mg PO DAILY 08/28/24 [History] Levothyroxine Sodium [Synthroid] 75 mcg PO QAM 08/28/24 [History] Metoprolol Succinate (ER) [Toprol Xl] 25 mg PO BID 08/28/24 [History] Midodrine HCl [ProAmantine] 2.5 mg PO BID 08/28/24 [History] Mirabegron [Myrbetriq] 50 mg PO DAILY 08/28/24 [History] Omeprazole 20 mg PO QAM 08/28/24 [History] Spironolactone [Aldactone] 50 mg PO BID 08/28/24 [History] Upadacitinib [Rinvoq] 15 mg PO DAILY 08/28/24 [History] valACYclovir HCL [Valtrex] 500 mg PO DAILY 08/28/24 [History] Cyclobenzaprine [Flexeril] 10 mg PO TID PRN #60 tab 09/18/24 [Rx] oxyCODONE-APAP 5-325MG [Percocet 5-325 mg] 1 tab PO Q4HR PRN #42 tab 09/18/24 [Rx] Follow up Appointment(s)/Referral(s): Dante Almazan, BARBARA [PHYSICIAN STUDY DIRECTOR] - 2 Weeks (Patient may follow-up with Dante Almazan PA-C or Dr. Juan M Mcguire at [facility] in 2-3 weeks following discharge. ) Activity/Diet/Wound Care/Special Instructions: 1. Patient may shower with Optifoam dressing intact. 2. Patient may remove Optifoam dressing in 3 days and shower without a dressing at that time. 3. Patient should refrain from driving until at least after their first follow- up appointment in the office. 4. Patient should avoid excessive bending, twisting, lifting; avoid overhead lifting; no lifting greater than 10 pounds 5. Take medications as prescribed 6. Patient should avoid anti-inflammatory medications over the next 6 weeks postoperatively 7. Do not soak in tub Discharge Disposition: HOME SELF-CARE
--- NOTE | 2024-09-18 18:06 | P.PN ---
Progress Note - Text Progress Note Date: 09/18/24 - Chief Complaint Lumbar surgery - History of Present Illness Very pleasant 58-year-old patient follows Dr. Blu Yeboah. Chronic medical conditions include atrial fibrillation, COPD, GERD, rheumatoid arthritis, obstructive sleep apnea does not use a CPAP machine, hypothyroid, varicose veins, diverticulosis. Patient has lower back pain for good 10 months. Progressively getting worse. Had sciatica symptoms pain going down the right leg. Finding it difficult to walk. Patient today is undergone surgical intervention in the lower lumbar spine. Postprocedure some local pain present. No nausea vomiting. September 17: Patient did walk up 150 feet hand-held assist with physical therapy. Eating well. Her heart rate had gone up to the 130s yesterday evening. I did explain the importance of telemetry especially postop history of A-fib. Initially patient agreed. Later asked spoke to the nurse patient again has refused telemetry. September 18: Patient heart rate has been around 110. Patient did not wear a telemetry. Asked the patient to follow-up with a deep well contractor. Patient also did not want to finish her IV iron. Oral iron was added. Follow-up with her PCP. No chest pain or shortness of breath. No urinary or respiratory symptoms. Surgical incision healing well per surgery. Social history: Patient smoke about 50 years stopped smoking about a month ago. Lives with her [facility]. Denies alcohol Physical examination: VITAL SIGNS: 99.4, 112, 17, 107 x 37, 92% room air GENERAL: BMI 33.4, comfortable EYES: Pupils equal. Conjunctiva karyn l. HEENT: External appearance of nose and ears normal, oral cavity grossly normal. NECK: JVD not raised; masses not palpable. HEART: Heart sounds a irregular r; no edema. LUNGS: Respiratory rate normal; diminished breath sounds. ABDOMEN: Soft, nontender, liver spleen not palpable, no masses palpable. PSYCH: Alert and oriented x3; mood and affect karyn l. MUSCULOSKELETAL:No Clubbing/cyanosis;muscles-grossly intact. Dressing over operative site INVESTIGATIONS, reviewed in the clinical context: September 17: White count 12.1 hemoglobin 9.7 platelets 312 sodium 130 potassium 4 creatinine 0.97 September 16, 2024: White count 14.4 hemoglobin 11.9 platelets 395 August 27, 2024: White count 15.9 hemoglobin 12.5 sodium 134 potassium 4.4 creatinine 0.75 Assessment plan: -Dynamic spondylolisthesis L5-S1, spinal stenosis L5-S1, low back pain, lower extremity radiculopathy Laminectomy, decompression discectomy interbody graft etc. by Dr. Mcguire on September 16, 2024 Follow postop orders per Dr. Mcguire -Chronic urinary stress incontinence Myrbetriq -Persistent atrial fibrillation. Intermittent heart rate controlled. After repeated explaining patient is refusing telemetry. Eliquis. Toprol-XL -Acute postprocedure blood loss anemia expected from surgery IV Ferrlecit-patient did not complete a dose today. Oral iron -Hypothyroid Synthroid 75 mcg a day -Muscle spasms Flexeril -COPD in a prior smoker Bronchodilators as needed -Obesity BMI 33.4 Weight loss measures -Chronic rheumatoid arthritis -Obstructive sleep apnea, patient does not use her CPAP -Chronic diverticulosis with prior bowel resection. Stable -GERD PPI -Full code Patient to follow-up with the PCP. And a deep well contractor. Next week Thank you Dr. Mcguire Past Medical History Past Medical History: Atrial Fibrillation, COPD, GERD/Reflux, Rheumatoid Arthritis (RA), Sleep Apnea/CPAP/BIPAP, Thyroid Disorder Additional Past Medical History / Comment(s): sores radha arms,"takes cardiac meds due to when standing up would feel dizzy and fall",chronic back pain,varicose veins, has O2 at home but does not use,does not use cpap,herpes,daily steroid,diverticulosis/diverticulitis History of Any Multi-Drug Resistant Organisms: None Reported Past Surgical History: Bowel Resection, Cardiac Ablation, Section, Orthopedic Surgery Additional Past Surgical History / Comment(s): radha carpal tunnel, bowel resection due to diverticulitis, COLONOSCOPY Past Anesthesia/Blood Transfusion Reactions: No Reported Reaction Additional Past Anesthesia/Blood Transfusion Reaction / Comm: no hx blood transfusion Past Psychological History: No Psychological Hx Reported Smoking Status: Former smoker Past Alcohol Use History: None Reported Additional Past Alcohol Use History / Comment(s): quit smoking 2--25, smokes approx 50 yrs-on and off Past Drug Use History: None Reported
== END 2024-09-18 11:26 | disposition home or self-care (01) | DRG 402 ==
LOC: 2ORMAIN 06:01 → EDSTATUS 07:30 → 4SSUR 12:16
PROVIDERS: ADMIT Orthopaedic Surgery Orthopaedic Surgery of the Spine; ATTEND Orthopaedic Surgery Orthopaedic Surgery of the Spine
PROC: 0SG3071 Fusion of Lumbosacral Joint with Autologous Tissue Substitute, Posterior Approach, Posterior Column, Open Approach (ICD-10-PCS; 2024-09-16)
PROC: 01NB0ZZ Release Lumbar Nerve, Open Approach (ICD-10-PCS; 2024-09-16)
PROC: 0ST40ZZ Resection of Lumbosacral Disc, Open Approach (ICD-10-PCS; 2024-09-16)
PROC: 01NA0ZZ Release Lumbosacral Plexus, Open Approach (ICD-10-PCS; 2024-09-16)
PROC: 07DT3ZZ Extraction of Bone Marrow, Percutaneous Approach (ICD-10-PCS; 2024-09-16)
PROC: 8E0WXBG Computer Assisted Procedure of Trunk Region, With Computerized Tomography (ICD-10-PCS; 2024-09-16)
PROC: 0SG30AJ Fusion of Lumbosacral Joint with Interbody Fusion Device, Posterior Approach, Anterior Column, Open Approach (ICD-10-PCS; principal; 2024-09-16 07:30)
DX: M43.17 Spondylolisthesis, lumbosacral region (principal); E03.9 Hypothyroidism, unspecified; J44.9 Chronic obstructive pulmonary disease, unspecified; M06.9 Rheumatoid arthritis, unspecified; E66.9 Obesity, unspecified; I48.19 Other persistent atrial fibrillation; Z68.33 Body mass index [BMI] 33.0-33.9, adult; M51.17 Intervertebral disc disorders with radiculopathy, lumbosacral region; M47.27 Other spondylosis with radiculopathy, lumbosacral region; M48.07 Spinal stenosis, lumbosacral region; G47.33 Obstructive sleep apnea (adult) (pediatric); K21.9 Gastro-esophageal reflux disease without esophagitis; I83.90 Asymptomatic varicose veins of unspecified lower extremity; N39.3 Stress incontinence (female) (male); K57.30 Diverticulosis of large intestine without perforation or abscess without bleeding; Z87.891 Personal history of nicotine dependence; Z90.49 Acquired absence of other specified parts of digestive tract; Z79.01 Long term (current) use of anticoagulants; Z79.890 Hormone replacement therapy; Z79.899 Other long term (current) drug therapy
CPT/HCPCS: 72100; 80053; 85025; 85027; 86850; 86900; 86901